=== PATIENT | male | born 1965 | race Caucasian/White ===

== ENCOUNTER 2018-05-03 09:42 | Outpatient (CLI) | payer OTHER ==
--- NOTE | 2018-05-03 12:33 | XRAY Report ---
Reason: WEAKNESS LEFT ARM Procedure Date: 05/03/2018 Accession Number: [id number] / [id number] Procedure: XRN - Cervical Spine 2 View CPT Code: FULL RESULT: EXAM: CERVICAL SPINE RADIOGRAPHY EXAM DATE: 05/03/2018 10:04 AM. CLINICAL HISTORY: Weakness left arm. COMPARISONS: None. TECHNIQUE: 3 views. FINDINGS: Alignment: There is a focal cervical kyphosis at C4-C5 without listhesis. Bones: The cervical vertebral bodies and posterior elements are well visualized from the skull base through C7-T1. No fractures or bone lesions. Disks: Associated with the focal kyphosis is widening of the disk space. There is minimal degenerative narrowing of the disk space height of C5-C6 and C6-C7. Facets: AP view demonstrates right greater than left degenerative facet changes at the C4-C5 level, not fully characterized on plain radiographs. Soft Tissues: Normal. No prevertebral soft tissue swelling. The visualized lung apices are clear. IMPRESSION: The focal kyphosis with C4-C5 disk space widening and facet arthropathy at the same level may represent degenerative change. Alternatively, this could represent an old healed ligamentous injury. Cross-sectional imaging characterization by MRI could be considered if the clinical presentation warrants further workup. [facility]
== END 2018-05-03 09:43 | disposition home or self-care (01) ==
LOC: DI.N 09:42
PROVIDERS: ATTEND Physician Assistant Medical
DX: M50.322 Other cervical disc degeneration at C5-C6 level (principal); M47.9 Spondylosis, unspecified; M40.202 Unspecified kyphosis, cervical region; Z00.00 Encounter for general adult medical examination without abnormal findings; R53.1 Weakness; Z72.0 Tobacco use; E55.9 Vitamin D deficiency, unspecified
CPT/HCPCS: 36415; 72040; 80048; 80061; 82306; 84443; 85025

== ENCOUNTER 2018-05-03 10:07 | Outpatient (CLI) | payer OTHER ==
[2018-05-03 12:54] LABS: BASOPHILS # (AUTO) 0.1 10^3/uL (0.0-0.1); BASOPHILS % (AUTO) 0.9 %; EOSINOPHILS # (AUTO) 0.4 10^3/uL (0.0-0.7); EOSINOPHILS % (AUTO) 5.7 %; HGB - HEMOGLOBIN 16.4 g/dL (14.0-18.0); LYMPHOCYTES # (AUTO) 1.8 10^3/uL (1.5-3.5); LYMPHOCYTES % (AUTO) 23.4 %; MEAN CORPUSCULAR HEMOGLOBIN 35.2 pg (27.0-31.0); MEAN CORPUSCULAR HGB CONC 33.7 g/dL (32.0-36.0); MEAN CORPUSCULAR VOLUME 104.6 fL (80.0-94.0); MEAN PLATELET VOLUME 8.6 fL (7.4-11.4); MONOCYTES # (AUTO) 0.6 10^3/uL (0.0-1.0); MONOCYTES % (AUTO) 8.4 %; NEUTROPHILS # (AUTO) 4.7 10^3/uL (1.5-6.6); NEUTROPHILS % (AUTO) 61.6 %; PLT - PLATELET COUNT 280 10^3/uL (130-450); RED BLOOD COUNT 4.66 10^6/uL (4.70-6.10); RED CELL DISTRIBUTION WIDTH 14.5 % (12.0-15.0); WHITE BLOOD COUNT 7.6 x10^3/uL (4.8-10.8)
[2018-05-03 13:16] LABS: BUN - BLOOD UREA NITROGEN 8 mg/dL (6-20); CALCIUM 9.2 mg/dL (8.5-10.3); CARBON DIOXIDE - CO2 28 mmol/L (21-32); CHLORIDE 103 mmol/L (101-111); CHOL/HDL RATIO 3.6 (<5.0); CHOLESTEROL 169 mg/dL; CREATININE 0.9 mg/dL (0.6-1.2); GFR - MDRD 89 (>89); GLUCOSE 101 mg/dL (70-100); HDL CHOLESTEROL 47 mg/dL; LDL CHOLESTEROL,CALCULATED 98 mg/dL; LDL/HDL RATIO 2.1 (<3.6); SODIUM 140 mmol/L (135-145); VLDL CHOLESTEROL 24 mg/dL
== END 2018-05-03 10:08 | disposition home or self-care (01) ==
LOC: LAB.N 10:07
PROVIDERS: ATTEND Physician Assistant Medical
DX: Z00.00 Encounter for general adult medical examination without abnormal findings (principal); R53.1 Weakness; Z72.0 Tobacco use; E55.9 Vitamin D deficiency, unspecified
CPT/HCPCS: 36415; 80048; 80061; 82306; 83721; 84443; 85025

== ENCOUNTER 2018-05-17 08:00 | Outpatient (CLI) | payer OTHER ==
[2018-05-17 12:45] LABS: BASOPHILS # (AUTO) 0.1 10^3/uL (0.0-0.1); BASOPHILS % (AUTO) 0.6 %; EOSINOPHILS # (AUTO) 0.2 10^3/uL (0.0-0.7); EOSINOPHILS % (AUTO) 1.9 %; HGB - HEMOGLOBIN 16.7 g/dL (14.0-18.0); LYMPHOCYTES # (AUTO) 1.8 10^3/uL (1.5-3.5); LYMPHOCYTES % (AUTO) 18.8 %; MEAN CORPUSCULAR HEMOGLOBIN 35.3 pg (27.0-31.0); MEAN CORPUSCULAR HGB CONC 34.3 g/dL (32.0-36.0); MEAN CORPUSCULAR VOLUME 102.9 fL (80.0-94.0); MEAN PLATELET VOLUME 8.2 fL (7.4-11.4); MONOCYTES # (AUTO) 0.6 10^3/uL (0.0-1.0); MONOCYTES % (AUTO) 6.7 %; NEUTROPHILS # (AUTO) 6.9 10^3/uL (1.5-6.6); PLT - PLATELET COUNT 275 10^3/uL (130-450); RED BLOOD COUNT 4.72 10^6/uL (4.70-6.10); WHITE BLOOD COUNT 9.5 x10^3/uL (4.8-10.8)
[2018-05-17 13:01] LABS: FOLATE 4.07 ng/mL (5.90 - >24.8)
== END 2018-05-17 08:01 | disposition home or self-care (01) ==
LOC: LAB.N 08:00
PROVIDERS: ATTEND Physician Assistant Medical
DX: D53.9 Nutritional anemia, unspecified (principal)
CPT/HCPCS: 36415; 82607; 82746; 85025

== ENCOUNTER 2018-07-18 10:37 | Outpatient (CLI) | payer OTHER | END 2018-07-18 23:59 | disposition home or self-care (01) | LOC: LAB.N 10:37 | PROVIDERS: ATTEND Physician Assistant Medical | DX: E55.9 Vitamin D deficiency, unspecified (principal) | CPT/HCPCS: 36415; 82306 ==

== ENCOUNTER 2018-12-01 10:26 | Outpatient (CLI) | payer OTHER ==
[2018-12-02 14:08] LABS: HEPATITIS B SURFACE ANTIGEN NON-REACTIVE (NON-REACTIVE)
[2018-12-02 14:09] LABS: HEPATITIS C ANTIBODY NON-REACTIVE (NON-REACTIVE)
[2018-12-02 14:11] LABS: HEPATITIS B CORE AB TOTAL NON-REACTIVE (NON-REACTIVE)
[2018-12-02 14:45] LABS: HIV AG/AB 4TH GEN NON-REACTIVE (NON-REACTIVE)
== END 2018-12-01 10:27 | disposition home or self-care (01) ==
LOC: LAB 10:26
PROVIDERS: ATTEND Psychiatry & Neurology Neurology
DX: G35 Multiple sclerosis (principal); Z11.9 Encounter for screening for infectious and parasitic diseases, unspecified
CPT/HCPCS: 36415; 81599; 86317; 86355; 86359; 86360; 86480; 86704; 86787; 86803; 87340; 87389

== ENCOUNTER 2018-12-22 08:00 | Outpatient (CLI) | payer OTHER | END 2018-12-22 23:59 | disposition home or self-care (01) | LOC: LAB.N 08:00 | PROVIDERS: ATTEND Psychiatry & Neurology Neurology | DX: G35 Multiple sclerosis (principal) | CPT/HCPCS: 36415; 81599; 86735; 86762; 86765 ==

== ENCOUNTER 2020-10-15 07:35 | Outpatient (CLI) | payer OTHER | END 2020-10-15 07:36 | disposition critical access hospital (66) | LOC: EMS 07:35 | DX: S01.01XA Laceration without foreign body of scalp, initial encounter (principal); W01.0XXA Fall on same level from slipping, tripping and stumbling without subsequent striking against object, initial encounter; Y92.009 Unspecified place in unspecified non-institutional (private) residence as the place of occurrence of the external cause | CPT/HCPCS: A0425; A0429 ==

== ENCOUNTER 2020-10-15 08:06 | Emergency (ER) | payer OTHER ==
--- OUTSIDE RECORDS SUMMARY | 2020-10-15 08:37 | EXTERNAL MEDICAL SUMMARY RPT | Continuity of Care Document ---
:1965 Demographics Phone Unavailable Preferred Language Unknown Marital Status Unknown L[employer] Affiliation Unknown Race Unknown Ethnic Group Unknown Author Organization [facility] Address [address] [id number] Phone Social History date description facility [id number]
--- NOTE | 2020-10-15 08:51 | ED Physician Documentation ---
PD HPI HEAD INJURY - Stated complaint Stated Complaint: GLF/HEAD INJURY - Chief complaint Chief Complaint: General - History obtained from History obtained from: Patient - History of Present Illness Mechanism of head injury: Fell Where head injury occurred: Home Timing - onset: Last night Location of injury: Left Quality of pain: Aching Associated symptoms: LOC (And up to go the bathroom and felt somewhat lightheaded. He does not remember the fall itself but awoke on the floor with blood from his scalp. He went back to bed and noted more blood in his pillow this morning so called EMS.). No: AMS, Nausea / vomiting, Neck pain Contributing factors: Intoxicated. No: Anticoagulated Similar symptoms before: Has not had sx before Review of Systems Constitutional: denies: Fever, Chills Nose: denies: Rhinorrhea / runny nose, Congestion Throat: denies: Sore throat Cardiac: denies: Chest pain / pressure Respiratory: denies: Cough GI: denies: Abdominal Pain, Nausea, Vomiting Neurologic: reports: Focal weakness (left arm due to prior MS, not feeling worse than usual.), Headache, Head injury, LOC (he remembers feeling lightheaded but not the fall per se. Has scalp lac with mild bleeding still.). denies: Numbness PD PAST MEDICAL HISTORY - Past Medical History Past Medical History: Yes Cardiovascular: None Respiratory: None Neuro: Multiple sclerosis Endocrine/Autoimmune: None GI: None : None HEENT: None Psych: None Musculoskeletal: None Derm: None - Past Surgical History Past Surgical History: No - Present Medications Home Medications: Ambulatory Orders Medication Instructions Recorded Confirmed No Known Home Medications 10/15/20 10/15/20 - Allergies Allergies/Adverse Reactions: Allergies Allergy/AdvReac Type Severity Reaction Status Date / Time No Known Drug Allergies Allergy Verified 10/15/20 08:27 - Social History Does the pt smoke?: Yes Smoking Status: Current every day smoker Does the pt drink ETOH?: Yes ETOH Use: Beer Does the pt have substance abuse?: No - Immunizations Immunizations are current?: Yes PD ED PE NORMAL - Vitals Vital signs reviewed: Yes - General General: Alert and oriented X 3, No acute distress (matted hair with blood left parietal. Scalp lac palpable. Does not appear in pain though, alert and conversant. ), Well developed/nourished - HEENT HEENT: PERRL, EOMI, Other (left parietal area with 9 cm laceration from front to back, down to skull covering. No FB. There are some clots under the flap. These are cleaned out and irrigated to area. ) - Neck Neck: Supple, no meningeal sign, No bony TTP, No adenopathy - Cardiac Cardiac: RRR, No murmur - Respiratory Respiratory: Clear bilaterally, Other (no chestwall tenderness. 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 ) Results - Vitals Vitals: Vital Signs - 24 hr 10/15/20 10/15/20 10/15/20 08:13 08:43 10:28 Temperature 36 C L Heart Rate 74 78 74 Respiratory 16 16 14 Rate Blood Pressure 105/73 101/73 95/70 O2 Saturation 100 100 100 10/15/20 10/15/20 10/15/20 11:19 12:02 13:02 Temperature 36.4 C L Heart Rate 76 75 78 Respiratory 16 18 18 Rate Blood Pressure 97/72 110/73 110/71 O2 Saturation 98 98 100 Oxygen O2 Source Room air - Labs Labs: Laboratory Tests 10/15/20 10/15/20 09:14 09:14 WBC 7.7 RBC 3.90 L Hgb 13.7 L Hct 40.7 L MCV 104.4 H MCH 35.1 H MCHC 33.7 RDW 13.6 Plt Count 246 MPV 9.1 Neut # (Auto) 5.2 Lymph # (Auto) 1.6 Isabella # (Auto) 0.7 Eos # (Auto) 0.1 Baso # (Auto) 0.1 Absolute Nucleated RBC 0.00 Nucleated RBC % 0.0 Sodium 145 Potassium 3.6 Chloride 109 Carbon Dioxide 22 Anion Gap 14.0 H BUN 14 Creatinine 0.8 Estimated GFR (MDRD) 101 Glucose 112 H Calcium 8.9 Magnesium 2.2 Total Bilirubin 0.6 AST 15 ALT 20 Alkaline Phosphatase 61 Total Protein 6.0 L Albumin 3.7 Globulin 2.3 Albumin/Globulin Ratio 1.6 Lipase 51 Ethyl Alcohol 185.6 - Rads (name of study) head CT Radiology: Prelim report reviewed (no ICH nor fractures. ), See rad report Procedures - Laceration (location) left parietal scalp Length in cm: 9 Wound type: Flap, Clean Anesthesia: Lidocaine 2% with epi Wound preparation: Irrigated copiously NS, Wound explored, To the base. No: FB identified Deep layer closure: Vicryl, size #-0 - enter number (4), Other (running) Skin layer closure: Nylon, Running, Size #-0 - enter number (4), Sutures - enter # (many) Other: Patient tolerated well, No complications, Neurovascular intact, Tetanus UTD PD MEDICAL DECISION MAKING - ED course Complexity details: considered differential, d/w patient Departure - Departure Disposition: 01 Home, Self Care Clinical Impression: Postural syncope Accidental fall Qualifiers: Encounter type: initial encounter Qualified Code(s): W19.XXXA - Unspecified fall, initial encounter Scalp laceration Qualifiers: Encounter type: initial encounter Qualified Code(s): S01.01XA - Laceration without foreign body of scalp, initial encounter Alcohol intoxication Qualifiers: Complication of substance-induced condition: uncomplicated Qualified Code(s): F10.920 - Alcohol use, unspecified with intoxication, uncomplicated Condition: Stable Record reviewed to determine appropriate education?: Yes Instructions: ED Laceration Scalp Stitch Or Stap Comments: Hydrated. Regular intake. Avoid excess alcohol. It is okay to wash and shower. Clean off the wound twice a day with soap and water, or peroxide and water. Apply some antibiotic ointment to it to keep it moist. Also to watch for signs of infection such as purulence, redness or increasing pain. Return to your primary care or the ER at the specified time for suture removal. Suture removal 8 to 10 days. Tylenol ibuprofen as needed for pains. Discharge Date/Time: 10/15/20 13:16
[2020-10-15] MEDS ORDERED: LIDOCAINE 2%-EPI 1:100000 20 ML MDV SUBQ ONE (09:07)
[2020-10-15] MEDS ORDERED: ACETAMINOPHEN 325 MG TABLET PO STA (09:07)
[2020-10-15 09:17] LABS: BASOPHILS # (AUTO) 0.1 10^3/uL (0.0-0.1); BASOPHILS % (AUTO) 0.7 %; EOSINOPHILS # (AUTO) 0.1 10^3/uL (0.0-0.7); EOSINOPHILS % (AUTO) 1.7 %; HCT - HEMATOCRIT 40.7 % (42.0-52.0); HGB - HEMOGLOBIN 13.7 g/dL (14.0-18.0); LYMPHOCYTES # (AUTO) 1.6 10^3/uL (1.5-3.5); LYMPHOCYTES % (AUTO) 20.5 %; MEAN CORPUSCULAR HEMOGLOBIN 35.1 pg (27.0-31.0); MEAN CORPUSCULAR HGB CONC 33.7 g/dL (32.0-36.0); MEAN CORPUSCULAR VOLUME 104.4 fL (80.0-94.0); MEAN PLATELET VOLUME 9.1 fL (7.4-11.4); MONOCYTES # (AUTO) 0.7 10^3/uL (0.0-1.0); MONOCYTES % (AUTO) 9.4 %; NEUTROPHILS # (AUTO) 5.2 10^3/uL (1.5-6.6); PLT - PLATELET COUNT 246 10^3/uL (130-450); RED CELL DISTRIBUTION WIDTH 13.6 % (12.0-15.0); WHITE BLOOD COUNT 7.7 x10^3/uL (4.8-10.8)
[2020-10-15 09:30] LABS: ALBUMIN 3.7 g/dL (3.2-5.5); ALBUMIN/GLOBULIN RATIO 1.6 (1.0-2.2); BILIRUBIN,TOTAL 0.6 mg/dL (0.2-1.0); CALCIUM 8.9 mg/dL (8.5-10.3); CREATININE 0.8 mg/dL (0.6-1.2); ETOH - ETHANOL 185.6 mg/dL; MAGNESIUM 2.2 mg/dL (1.7-2.8); POTASSIUM 3.6 mmol/L (3.5-5.0)
--- NOTE | 2020-10-15 10:33 | CT Report ---
PROCEDURE: HEAD WO INDICATIONS: fall/syncope with struck head TECHNIQUE: Noncontrast 4.5 mm thick angled axial sections acquired from the foramen magnum to the vertex. For r adiation dose reduction, the following was used: automated exposure control, adjustment of mA and/or kV according to patient size. COMPARISON: None. FINDINGS: Image quality: Excellent. CSF spaces: Basal cisterns are patent. No extra-axial fluid collections. Ventricles are normal in size and shape. Brain: No midline shift. No intracranial masses or hemorrhage. Cat-white matter interface is norm al. Skull and face: There is a left superior, parietal scalp laceration with underlying contusion/hemato ma. Calvarium and visualized facial bones are intact, without acute fracture or suspicious lesions. Sinuses: Scattered ethmoid sinus mucosal thickening. The visualized mastoid air cells are clear. IMPRESSION: CT head without acute intracranial abnormalities. Left superior parietal scalp laceration with underlying contusion/hematoma. No acute calvarial fractu res. Mild scattered ethmoid sinus disease. Reviewed by: Franklyn Hayes MD on 10/15/2020 10:32 AM PDT Approved by: Franklyn Hayes MD on 10/15/2020 10:32 AM PDT Station ID: [id number]
[2020-10-15] MEDS ORDERED: SODIUM CHLORIDE 0.9% 1,000 ML IV STA (11:15)
[2020-10-15] MEDS ORDERED: KETOROLAC 15 MG/ML VIAL IVP STA (11:15)
[2020-10-15 13:03] VITALS: BP 110/71
== END 2020-10-15 13:16 | disposition home or self-care (01) ==
LOC: EDUNIT# → ED 08:06
DX: R55 Syncope and collapse (principal); S01.01XA Laceration without foreign body of scalp, initial encounter; W01.190A Fall on same level from slipping, tripping and stumbling with subsequent striking against furniture, initial encounter; Y93.01 Activity, walking, marching and hiking; Y92.003 Bedroom of unspecified non-institutional (private) residence as the place of occurrence of the external cause; F10.920 Alcohol use, unspecified with intoxication, uncomplicated; G35 Multiple sclerosis; F17.200 Nicotine dependence, unspecified, uncomplicated
CPT/HCPCS: 12034; 36415; 70450; 80053; 80320; 83690; 83735; 85025; 96374; 99284; A9270

== ENCOUNTER 2022-09-13 15:20 | Outpatient (CLI) | payer MEDICAID | END 2022-09-13 15:21 | disposition critical access hospital (66) | LOC: EMS 15:20 | DX: S00.03XA Contusion of scalp, initial encounter (principal); W18.30XA Fall on same level, unspecified, initial encounter; Y92.89 Other specified places as the place of occurrence of the external cause | CPT/HCPCS: A0425; A0429; A0999 ==

== ENCOUNTER 2022-09-13 15:52 | Emergency (ER) | payer MEDICAID, OTHER ==
[2022-09-13] MEDS ORDERED: LIDOCAINE 1%-EPI 1:100000 20 ML MDV SUBQ STA (15:57)
[2022-09-13] MEDS ORDERED: TETANUS/DIPHTHERIA/PERTUSSIS 0.5 ML SYRINGE IM ONE (15:58)
--- NOTE | 2022-09-13 15:59 | ED Physician Documentation ---
History of Present Illness - Stated complaint Stated Complaint: GLF - History obtained from History obtained from: Patient, EMS - Additonal information Additional information: 57-year-old gentleman with multiple sclerosis, unknown tetanus status. He was drinking at the bar and slipped and fell in the bathroom hitting his head. He has a very large laceration on the right parietal area that is bleeding heavily. He is intoxicated. He denies any other complaints. PD PAST MEDICAL HISTORY - Past Medical History Cardiovascular: None Respiratory: None Neuro: Multiple sclerosis Endocrine/Autoimmune: None GI: None : None HEENT: None Psych: None Musculoskeletal: None Derm: None - Past Surgical History Past Surgical History: No - Present Medications Home Medications: Ambulatory Orders Medication Instructions Recorded Confirmed No Known Home Medications 10/15/20 10/15/20 - Allergies Allergies/Adverse Reactions: Allergies Allergy/AdvReac Type Severity Reaction Status Date / Time No Known Drug Allergies Allergy Verified 10/15/20 08:27 - Social History Does the pt smoke?: Yes Smoking Status: Current every day smoker Does the pt drink ETOH?: Yes Does the pt have substance abuse?: No - Immunizations Immunizations are current?: Yes PD ED PE NORMAL - Vitals Vital signs reviewed: Yes - General General: No acute distress, Other (Slow slurred speech and smells of alcohol) - HEENT HEENT: PERRL, EOMI (With significant nystagmus), Other (There is actively bleeding laceration on the right parietal area) - Neck Neck: No bony TTP (But maintained in a c-collar pending imaging given intoxication) - Cardiac Cardiac: RRR, No murmur - Respiratory Respiratory: No respiratory distress, Clear bilaterally - Abdomen Abdomen: Non tender - Back Back: No CVA TTP, No spinal TTP - Derm Derm: Normal color, Warm and dry - Neuro Neuro: rn hedis 2-12 intact Eye Opening: Spontaneous Motor: Obeys Commands Verbal: Confused (Mild, confused as to the date) GCS Score: 14 Results - Vitals Vitals: Vital Signs - 24 hr 09/13/22 09/13/22 09/13/22 15:57 16:27 17:49 Heart Rate 74 63 71 Respiratory 20 14 16 Rate Blood Pressure 143/86 H 145/82 H 137/91 H O2 Saturation 100 100 99 09/13/22 18:55 Heart Rate 68 Respiratory 16 Rate Blood Pressure 137/91 H O2 Saturation 98 Oxygen O2 Source Room air Procedures - Laceration (location) Right scalp Length in cm: 3 Wound type: Into muscle (With arterial bleeding) Anesthesia: Lidocaine 1% with epi Wound preparation: Irrigated copiously NS Skin layer closure: Charmaine Other: Tetanus booster given PD Medical Decision Making - ED course ED course: This is a gentleman who is clinically intoxicated and fell at the bar injuring his head. He is actively bleeding head wound and he was seen immediately. The wound was irrigated, clot expressed, and closed with sutures charmaine. He was observed for about 3 hours until clinical sobriety. His sober uncle came to the department to pick him up. Departure - Departure Disposition: 01 Home, Self Care Clinical Impression: Head injury Qualifiers: Encounter type: initial encounter Qualified Code(s): S09.90XA - Unspecified injury of head, initial encounter Scalp laceration Qualifiers: Encounter type: initial encounter Qualified Code(s): S01.01XA - Laceration without foreign body of scalp, initial encounter Alcohol intoxication Qualifiers: Complication of substance-induced condition: uncomplicated Qualified Code(s): F10.920 - Alcohol use, unspecified with intoxication, uncomplicated Condition: Good Record reviewed to determine appropriate education?: Yes Instructions: ED Alcohol Intoxication, ED Head Injury Closed, ED Laceration Scalp Stitch Or Stap Comments: You were seen today because you got drunk at the bar and fell and hit your head. There was a significant bleeding laceration of your scalp that was repaired with charmaine. I recommend abstaining from alcohol. You should follow-up with your doctor in approximately 10 days for staple removal. Return for new or worsening symptoms. No driving today and stay with a sober responsible adult for the rest of the night.
--- NOTE | 2022-09-13 16:35 | CT Report ---
PROCEDURE: HEAD WO INDICATIONS: Head injury TECHNIQUE: Noncontrast 4.5 mm thick angled axial sections acquired from the foramen magnum to the vertex. For r adiation dose reduction, the following was used: automated exposure control, adjustment of mA and/or kV according to patient size. COMPARISON: None. FINDINGS: Image quality: Excellent. CSF spaces: Basal cisterns are patent. No extra-axial fluid collections. Ventricles are normal in size and shape. Brain: No midline shift. No intracranial masses or hemorrhage. Cat-white matter interface is norm al. Skull and face: Right parietal scalp contusion and hematoma. Sinuses: Scattered ethmoid air cell disease, otherwise visualized sinuses and mastoids are clear. IMPRESSION: No acute intracranial abnormality. Reviewed by: Benson Bianchi on 09/13/2022 3:33 PM G[facility] Approved by: Benson Bianchi on 09/13/2022 3:33 PM GAYLA Station ID: [id number]
--- NOTE | 2022-09-13 16:37 | CT Report ---
PROCEDURE: CERVICAL SPINE WO INDICATIONS: Head injury TECHNIQUE: Noncontrast 3 mm thick sections acquired from the skull base to the T4 level. Sagittal and coronal r eformats were then constructed. For radiation dose reduction, the following was used: automated exp osure control, adjustment of mA and/or kV according to patient size. COMPARISON: None. FINDINGS: Image quality: Excellent. Bones: No fractures or dislocations. Visualized superior ribs are intact. Soft tissues: Prevertebral soft tissues are normal in thickness. No paravertebral hematomas. No ap ical pneumothoraces. Degenerative disc disease at C5-6. IMPRESSION: No acute traumatic abnormality of the cervical spine. Reviewed by: Benson Bianchi on 09/13/2022 3:35 PM [facility] Approved by: Benson Bainchi on 09/13/2022 3:35 PM GAY[facility] Station ID: [id number]
[2022-09-13 17:50] VITALS: BP 137/91
== END 2022-09-13 19:16 | disposition home or self-care (01) ==
LOC: EDUNIT# → ED 15:52
DX: S01.01XA Laceration without foreign body of scalp, initial encounter (principal); S09.90XA Unspecified injury of head, initial encounter; F10.129 Alcohol abuse with intoxication, unspecified; F17.200 Nicotine dependence, unspecified, uncomplicated; W01.0XXA Fall on same level from slipping, tripping and stumbling without subsequent striking against object, initial encounter; Y93.89 Activity, other specified; Y92.838 Other recreation area as the place of occurrence of the external cause
CPT/HCPCS: 12032; 90471